=== PATIENT | female | born 2000 | race Caucasian/White ===

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

== ENCOUNTER 2022-04-07 15:12 | Emergency (ER) | payer OTHER ==
[~2022-04-07] VITALS: Ht 162.6 cm; Wt 59.0 kg
== END 2022-04-07 21:14 | disposition home or self-care (01) ==
LOC: ER 15:12 → EMR PED 15:15
DX: J06.9 Acute upper respiratory infection, unspecified (principal)

== ENCOUNTER 2023-06-05 12:02 | Emergency (ER) | payer OTHER ==
[~2023-06-05] VITALS: Ht 162.6 cm; Wt 61.2 kg
[2023-06-05 13:42] LABS: HEMATOCRIT 40.9 % (36.0-45.00); HEMOGLOBIN 13.7 g/dL (12.0-15.00); MEAN CELL VOLUME 83.8 fL (80.00-100.00); MEAN CORPUSCULAR HGB CONC 33.5 g/dl (32.0-36.0); PLATELET COUNT 301 K/uL (150-450); RED BLOOD COUNT 4.88 M/uL (4.00-6.00); RED CELL DISTRIBUTION WIDTH 14.5 % (11.5-14.5)
[2023-06-05 14:31] LABS: BILIRUBIN TOTAL 0.35 mg/dL (0.3-1.2); CALCIUM 9.7 mg/dL (8.5-10.1); CREATININE SERUM 0.77 mg/dL (0.55-1.02); GFR 95.57; GLOBULINA 4.8 G/DL (2.4-3.5); POTASSIUM 3.85 mEq/L (3.5-5.1); TOTAL PROTEIN 8.8 gm/dL (6.4-8.2)
== END 2023-06-05 14:59 | disposition home or self-care (01) ==
LOC: EMR PED → ER 12:03 → EMR PED 13:13
PROVIDERS: Emergency Medicine Pediatric Emergency Medicine
DX: J45.901 Unspecified asthma with (acute) exacerbation (principal); Z20.822 Contact with and (suspected) exposure to COVID-19

== ENCOUNTER 2025-01-14 11:00 | Outpatient (CLI) | payer OTHER ==
[~2025-01-14 11:00] MED LIST changes: +ZITHROMAX200 MG PO; +ZYRTEC10 MG PO
== END 2025-01-14 11:07 | disposition home or self-care (01) ==
LOC: RAD 11:00
PROVIDERS: ATTEND Internal Medicine Critical Care Medicine
DX: J45.40 Moderate persistent asthma, uncomplicated (principal)